=== PATIENT | female | born 1975 | race Caucasian/White ===

== ENCOUNTER 2019-06-30 18:36 | Emergency (ER) | payer OTHER, SELFPAY ==
--- NOTE | ~2019-06-30 | XR_ITS ---
EXAMINATION: XR hand RT min 3V EXAM DATE: 06/30/2019 18:52 INDICATION: Initial encounter following injury, with pain of the right hand. TECHNIQUE: Right hand frontal, lateral and oblique projections obtained and reviewed. There is no pr ior study for comparison. FINDINGS: Right metacarpal bones are unremarkable. There are no acute fractures or dislocations iden tified. There is no subcutaneous gas. The soft tissue is unremarkable. There are no radiopaque fo reign bodies. IMPRESSION: No acute osseous findings. Reviewed, dictated and finalized at location A. IMPRESSION: No acute osseous findings.
[2019-06-30 18:41] VITALS: BP 132/79; PULSE 87; RESP 14; TEMP 37; O2SAT 99
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
== END 2019-06-30 19:17 | disposition home or self-care (01) ==
PROVIDERS: Emergency Provider Nurse Practitioner
DX: S69.91XA Unspecified injury of right wrist, hand and finger(s), initial encounter (principal); X58.XXXA Exposure to other specified factors, initial encounter; F41.9 Anxiety disorder, unspecified; F32.9 Major depressive disorder, single episode, unspecified
CPT/HCPCS: 73130; 99213; G0463

== ENCOUNTER 2020-12-02 21:49 | Emergency (ER) | payer OTHER, SELFPAY ==
[2020-12-02 21:53] VITALS: BP 134/76; PULSE 109; RESP 18; TEMP 37.3; O2SAT 99
[2020-12-02 22:16] VITALS: PULSE 94; RESP 16; TEMP 37.1; O2SAT 98
--- NOTE | 2020-12-02 22:29 | PC.NURSE ---
Pt attempting to void in bathroom
[2020-12-02 22:50] LABS: Add Urine Microscopic? YES; Appearance Urine Cloudy (Clear); Bilirubin Urine 1+ (Negative); Blood Urine Negative (Negative); Calcium Oxalate Crystals Urine Many /hpf; Color Urine Yellow (Yellow); Glucose Urine UA Negative (Negative); Ketones Urine Trace mg/dL (Negative); Leukocyte Esterase Ur 2+ LEU/UL (Negative); Mucus Urine Heavy /lpf; Nitrate Urine Negative (Negative); Protein Urine 2+ mg/dL (Negative); RBC Urine 21-50 /hpf (0-2); Specific Grav Ur 1.034 (1.001-1.035); Squamous Epithelial Cell Urine Many /hpf (Few)
[2020-12-02] MEDS: SODIUM CHLORIDE 0.9% IV 1,000 ML 999 ML IV CONT (22:52)
[2020-12-02] MEDS: KETOROLAC 30 MG/ML VIAL (*BKC) 15 MG IV PUSH (22:54)
[2020-12-02 22:55] LABS: Basophils Percent Auto 0.3 % (0.2-1.2); Eosinophils Absolute Auto 0.3 K/mm3 (0-0.3); Eosinophils Percent Auto 2.7 % (0-4.4); Hematocrit 34.9 % (37.0-47.0); Hemoglobin 10.8 g/dL (12.0-15.0); Immature Granulocyte Absolute 0.02 K/mm3 (0.00-0.031); Immature Granulocyte Percent A 0.2 % (0-0.5); Lymphocytes Absolute Auto 2.55 K/mm3 (0.9-3.2); Lymphocytes Percent Auto 26.3 % (18.3-44.2); Mean Corpuscular HGB Conc 30.9 g/dl (32-36); Mean Corpuscular Hemoglobin 27.2 pg (26-34); Mean Corpuscular Volume 87.9 fl (80-100); Mean Platelet Volume 11.9 fl (7.4-10.4); Monocytes Absolute Auto 0.5 K/mm3 (0.1-0.6); Monocytes Percent Auto 5.5 % (2.6-8.5); Neutrophils Absolute Auto 6.3 K/mm3 (1.3-6.7); Platelet Count Result 249 k/mm3 (150-375); Red Blood Count 3.97 M/mm3 (4.2-5.4); Red Cell Distribution Width 16.3 % (11.5-14.5); White Blood Count 9.7 K/mm3 (4.5-10.0)
--- NOTE | 2020-12-02 22:59 | ED.ABDPAIN ---
HPI - Abdominal Pain General Chief Complaint: Urogenital-Female Stated Complaint: urinary retention, bladder pain Time Seen by Provider: 12/02/20 22:07 History of Present Illness HPI narrative: Patient presents with lower abdominal pain. She was recently seen in another facility diagnosed with a urinary tract infection she was also evaluated for kidney stones with a CT scan and it was negative. She was given Macrobid and discharged home. Patient reports continued pressure sensation and a sensation like she needs to urinate and she is on her last dose of Macrobid. She is concerned that something else might be going on so she came in for evaluation. She also reports fevers at home. Denies any nausea or vomiting. She denies any back pain. Related Data Home Medications Medication Instructions Recorded Confirmed amitriptyline 150 mg PO HS 06/30/19 06/30/19 buspirone 10 mg PO DAILY 06/30/19 06/30/19 dicyclomine 20 mg PO TID 06/30/19 06/30/19 fluoxetine 20 mg PO DAILY 06/30/19 06/30/19 hydroxyzine HCl 25 mg PO TID PRN 06/30/19 06/30/19 Allergies Allergy/AdvReac Type Severity Reaction Status Date / Time No Known Allergies Allergy Verified 12/02/20 22:25 Review of Systems Review of Systems: CONSTITUTIONAL: Denies fever, chills, or sweats. EYES: Denies visual changes, redness, or discharge. ENT: Denies rhinorrhea, congestion, sore throat, or otalgia. CARDIOVASCULAR: Denies chest pain, palpitations, or edema. RESPIRATORY: Denies cough or dyspnea. GASTROINTESTINAL: Denies nausea, vomiting, or diarrhea. GENITOURINARY: She reports urgency SKIN: Denies rash or itching. MUSCULOSKELETAL: Denies back pain, joint pain, or myalgia. NEUROLOGIC: Denies headache, numbness, dizziness, or weakness. PSYCHIATRIC: Denies anxiety or depression. All systems reviewed & are unremarkable except as noted in HPI and below Exam Narrative: GENERAL: Well-appearing, well-nourished, and in no acute distress. HEAD: Normocephalic, atraumatic. EYES: PERRLA and EOMI. ENT: Nares clear, no rhinorrhea or epistaxis. Mucous membranes moist. NECK: Supple. No masses. No JVD ABDOMEN: Mild tenderness palpation in the suprapubic area soft, nontender, normal active bowel sounds. EXTREMITIES: Normal range of motion. No edema. SKIN: Warm, dry, no rash. NEURO: No focal deficits. Alert and oriented x3. PSYCH: Normal mood and affect. Course Reevaluation(s) Reevaluation #1: Patient resting comfortably bladder scan with less than 50, results and plan reviewed with patient. Patient comfortable with the outpatient plan. Primary concern is for continued urinary tract infection with cystitis we will switch up antibiotics. Date: 12/02/20 Time: 23:28 Vital Signs Vital signs: Vital Signs Temperature 37.3 C 12/02/20 21:53 Pulse Rate 109 H 12/02/20 21:53 Respiratory Rate 18 12/02/20 21:53 Blood Pressure 134/76 12/02/20 21:53 Pulse Oximetry 99 12/02/20 21:53 Temperature 37.1 C 12/02/20 22:16 Pulse Rate 96 12/02/20 23:59 Respiratory Rate 18 12/02/20 23:59 Blood Pressure 136/78 12/02/20 23:59 Pulse Oximetry 99 12/02/20 23:59 MDM - Abdominal Pain MDM Narrative Medical decision making narrative: H&P as above, vss, pt looks clinically well, exam with mild tenderness in the suprapubic area, labs with UA concerning for infection, bladder scan within normal limits, additional labs/img considered, symptomatic relief available as needed, on reevaluation pt continues to looks clinically well. Suspect continued UTI with cystitis, dns pyelonephritis, severe sepsis, abscess. Plan to tx/monitor as op w/ pcm f/u findings/plan discussed with pt, pt agree/comfortable with plan, return precautions given Lab Data Result diagrams: 12/02/20 22:50 12/02/20 22:50 Labs: Lab Results 12/02/20 12/02/20 12/02/20 Range/Units 22:37 22:50 22:50 WBC 9.7 (4.5-10.0) K/mm3 RBC 3.97 L (4.2-5.4) M/mm3 Hgb 10.8 L (12.
[2020-12-02 23:04] LABS: Alanine Aminotransferase 9 U/L (4-35); Alkaline Phosphatase 62 U/L (38-126); Anion Gap 6 mmol/L (8-16); Aspartate Amino Transferase 24 U/L (14-36); Bilirubin,Total 0.2 mg/dL (0.2-1.3); Blood Urea Nitrogen 15 mg/dL (7-17); Carbon Dioxide 26 mmol/L (22-30); Chloride 108 mmol/L (98-107); Estimated CRCL calculation 64 ml/min; Estimated Glomerular Filt Rate 60; Glucose 109 mg/dL (65-110); Potassium 3.6 mmol/L (3.4-5.0); Sodium 140 mmol/L (137-145)
--- NOTE | 2020-12-02 23:30 | PC.NURSE ---
Bladder scanned for 42 cc. aware
[2020-12-02 23:59] VITALS: BP 136/78; PULSE 96; RESP 18; O2SAT 99
== END 2020-12-02 23:59 | disposition home or self-care (01) ==
LOC: ANHED 23:36
PROVIDERS: Emergency Provider Emergency Medicine; PCP Internal Medicine
DX: N39.0 Urinary tract infection, site not specified (principal)
CPT/HCPCS: 36415; 80053; 81001; 85025; 87086; 87088; 96361; 96374; 99284; J1885; J7030

== ENCOUNTER 2020-12-07 19:54 | Emergency (ER) | payer OTHER, SELFPAY ==
--- NOTE | 2020-12-07 19:57 | ED.FEMALEGU ---
HPI - Female Genitourinary General Chief complaint: Urogenital-Female Stated complaint: uti Time Seen by Provider: 12/07/20 20:20 Source: patient and RN notes reviewed Mode of arrival: ambulatory Limitations: no limitations History of Present Illness HPI Narrative: 45-year-old female presents with concern for suprapubic pressure, difficulty emptying her bladder. Reports she has had ongoing urinary tract infection symptoms for several weeks, she reports she was treated by her GI for a possible urinary tract infection with Cipro and Flagyl. Reports she was then seen in the emergency room at [facility] and given Macrobid. Reports symptoms did not resolve so she went to [place] [facility] and was given cephalexin. She reports her symptoms have still not resolved. Reports she has had a history of kidney stones, however had a CT scan in the emergency room that ruled out kidney stones. She denies current back pain, flank pain, nausea. Reports she was told in the past that she had a twisted ureter and has seen a urologist. She denies current fever, dysuria,, urgency. MD elicited complaint: UTI Related Data Home Medications Medication Instructions Recorded Confirmed amitriptyline 12/07/20 buspirone mg 12/07/20 cephalexin 12/07/20 fluoxetine mg 12/07/20 fluoxetine mg 12/07/20 phenazopyridine 12/07/20 ziprasidone HCl 12/07/20 Allergies Allergy/AdvReac Type Severity Reaction Status Date / Time No Known Allergies Allergy Verified 12/07/20 20:13 Review of Systems Review of Systems: CONSTITUTIONAL: Denies malaise, chills, sweats, or fever. CARDIOVASCULAR: Denies chest pain, palpitations, or edema. RESPIRATORY: Denies cough or dyspnea. GASTROINTESTINAL: Denies abdominal pain, nausea, vomiting, diarrhea GENITOURINARY: Denies dysuria or hematuria. Reports suprapubic pressure, difficulty emptying her bladder SKIN: Denies vaginal rash or itching. MUSCULOSKELETAL: Denies back pain, joint pain, or myalgia. All systems reviewed & are unremarkable except as noted in HPI and below PMFSH Comments At time of signature, agree with nursing past medical, surgical, social and family history. There is no relevant family history pertinent to the presenting complaint Exam Narrative: GENERAL: Well-appearing, well-nourished, and in no acute distress. HEAD: Normocephalic. EYES: PERRLA, conjunctivae clear. NECK: Supple. No lymphadenopathy CHEST: Clear to auscultation. No respiratory distress. HEART: Regular rate and rhythm. ABDOMEN: Soft, nontender upon palpation, nondistended, normal active bowel sounds, no palpable or pulsatile masses, no guarding. No CVA tenderness SKIN: Warm, dry, no rash. NEURO: Alert and oriented x3. PSYCH: Normal mood and affect Course Course Emergency Course: Discussed with patient by due to frequent recently prescribed antibiotics for similar symptoms that have not resolved, will send urine for culture and will not send antibiotic until/and if needed based on the culture. Patient understands that she needs to follow-up with her urologist for further evaluation of her symptoms. Patient is aware of diagnosis, understands and agrees to treatment plan. Anticipatory guidance given. Patient agrees to follow-up as directed and is aware of reasons to seek care at the emergency department. Portions of this record may have been created with voice recognition software Vital Signs Vital signs: Reviewed. MDM - Female Genitourinary MDM Narrative Medical decision making narrative: Exam findings and UA show no acute concerns or changes; patient is non-toxic appearing and is in no distress. Patient is appropriate for outpatient treatment and follow-up. Critical Care Time Critical Care Time Critical Care Time: No Discharge Plan Discharge Clinical Impression: Suprapubic pressure Patient Disposition: Home, Self-Care Condition: Stable Instructions: General Patient Instructions Additional Instructions: We will send a urin
[2020-12-07 20:06] VITALS: BP 119/77; PULSE 106; RESP 16; TEMP 37.2; O2SAT 99
== END 2020-12-07 20:36 | disposition home or self-care (01) ==
PROVIDERS: Emergency Provider Nurse Practitioner; PCP Internal Medicine
DX: R10.30 Lower abdominal pain, unspecified (principal)
CPT/HCPCS: 81003; 87086; 87088; 99203; G0463

== ENCOUNTER 2021-06-08 08:45 | Emergency (ER) | payer OTHER, SELFPAY ==
[2021-06-08 08:54] VITALS: BP 106/76; PULSE 78; RESP 16; TEMP 36.5; O2SAT 99
--- NOTE | 2021-06-08 08:57 | ED.DENTAL ---
HPI - Dental/Oral General Stated complaint: tooth pain Time Seen by Provider: 06/08/21 08:57 Source: patient Mode of arrival: ambulatory Limitations: no limitations History of Present Illness HPI Narrative: 45 yo F presents with c/o L upper dental pain for 2 to 3 days. states she broke tooth several months ago. Has appt with dentist in 3 wks. Was told to go to to start abx. Denies fever/chills. All systems reviewed and negative except as noted above. Related Data Home Medications Medication Instructions Recorded Confirmed amitriptyline 150 mg PO HS 06/30/19 06/30/19 buspirone 10 mg PO DAILY 06/30/19 06/30/19 dicyclomine 20 mg PO TID 06/30/19 06/30/19 fluoxetine 20 mg PO DAILY 06/30/19 06/30/19 hydroxyzine HCl 25 mg PO TID PRN 06/30/19 06/30/19 amitriptyline 12/07/20 buspirone mg 12/07/20 cephalexin 12/07/20 fluoxetine mg 12/07/20 fluoxetine mg 12/07/20 phenazopyridine 12/07/20 ziprasidone HCl 12/07/20 Allergies Allergy/AdvReac Type Severity Reaction Status Date / Time No Known Allergies Allergy Unverified 12/07/20 20:13 Review of Systems Review of Systems: CONSTITUTIONAL: Denies fever, chills, or sweats. EYES: Denies visual changes, redness, or discharge. ENT: Denies rhinorrhea, congestion, sore throat, or otalgia. Reports dental pain. CARDIOVASCULAR: Denies chest pain, palpitations, or edema. RESPIRATORY: Denies cough or dyspnea. GASTROINTESTINAL: Denies abdominal pain, nausea, vomiting, or diarrhea. GENITOURINARY: Denies dysuria or hematuria. SKIN: Denies rash or itching. MUSCULOSKELETAL: Denies back pain, joint pain, or myalgia. NEUROLOGIC: Denies headache, numbness, or weakness. PSYCHIATRIC: Denies anxiety or depression. All other systems reviewed are negative, except as documented in HPI. PMFSH Comments At time of signature, agree with nursing past medical, surgical, social and family history. There is no relevant family history pertinent to the presenting complaint. Exam Narrative: GENERAL: This is a well-nourished, well-developed patient, in no apparent distress. HEAD: normocephalic, atraumatic. EYES: PERRL. Sclera clear/white. Vision is grossly intact. EARS: External ears normal, auditory canals clear and without drainage, TMs normal without perforation. Hearing grossly intact. NOSE: External nose normal with no obvious nasal discharge, nares without redness, no rhinorrhea. THROAT: Mucous membranes moist, posterior pharynx clear. MOUTH: dental decay noted. Tooth #12 is broken with tenderness. Swelling noted to pt's L cheek. No fluctuance noted concerning for abscess. NECK: Neck supple, non-tender without lymphadenopathy, masses or thyromegaly. CARDIOVASCULAR: Regular rate and rhythm without murmurs, gallops, or rubs. RESPIRATORY: Clear to auscultation. Breath sounds equal bilaterally. No wheezes, rales, or rhonchi. GASTROINTESTINAL: Abdomen soft, non-tender, nondistended. Bowel sounds are active. No hepato-splenomegaly, or palpable masses. No guarding. SKIN: warm, Dry, intact with no suspicious lesions or rash, good texture and turgor. NEURO: awake, alert, and oriented to person, place and time. There were no obvious focal neurologic abnormalities. EXTREMITIES: No joint tenderness, effusion, or edema noted. No calf tenderness. Negative Homans sign bilaterally. BACK: Nontender without deformity. No CVA tenderness. Course Course Level of Care: Express Care Visit Vital Signs Vital signs: Vital Signs Temperature 36.5 C 06/08/21 08:54 Pulse Rate 78 06/08/21 08:54 Respiratory Rate 16 06/08/21 08:54 Blood Pressure 106/76 06/08/21 08:54 Pulse Oximetry 99 06/08/21 08:54 Temperature 36.5 C 06/08/21 08:54 Pulse Rate 78 06/08/21 08:54 Respiratory Rate 16 06/08/21 08:54 Blood Pressure 106/76 06/08/21 08:54 Pulse Oximetry 99 06/08/21 08:54 Reviewed MDM - Dental/Oral MDM Narrative Medical decision making narrative: Patient is aware of diagnosis, understan
== END 2021-06-08 09:12 | disposition home or self-care (01) ==
PROVIDERS: Emergency Provider Nurse Practitioner Family; PCP Internal Medicine
DX: K08.89 Other specified disorders of teeth and supporting structures (principal); Z85.048 Personal history of other malignant neoplasm of rectum, rectosigmoid junction, and anus; Z85.41 Personal history of malignant neoplasm of cervix uteri
CPT/HCPCS: 99213; G0463

== ENCOUNTER 2022-01-13 11:13 | Emergency (ER) | payer OTHER, SELFPAY ==
--- NOTE | ~2022-01-13 | XR_ITS ---
EXAMINATION: XR chest 2V DATE: 01/13/2022 12:13 INDICATION: Chest pain. Cough. TECHNIQUE: Frontal and lateral views of the chest were obtained. COMPARISON: None. FINDINGS: There is no pneumonia, pleural effusion, or pneumothorax. The heart size is normal. There i s a compression fracture in mid thoracic spine, likely chronic. Surgical clips in the right upper edwina drant are likely from cholecystectomy. IMPRESSION: 1. No acute cardiopulmonary disease. Reviewed, dictated and finalized at location A.
[2022-01-13 11:17] VITALS: BP 129/62; PULSE 73; RESP 24; TEMP 36.4; O2SAT 100
--- NOTE | 2022-01-13 11:20 | ECG_ITS ---
Measurements Intervals Stacy Rate: 68 P: 59 FL: 135 QRS: 29 QRSD: 81 T: 35 QT: 401 QTc: 429 Interpretive Statements SINUS RHYTHM NORMAL ECG NO PREVIOUS ECG AVAILABLE FOR COMPARISON Electronically Signed On 01-13-2022 15:42:42 CDT by Chris Jo M.D.
--- NOTE | 2022-01-13 11:49 | ED.CHESTPAIN ---
HPI - Chest Pain General Chief Complaint: Chest Pain Stated Complaint: Chest Pain Time Seen by Provider: 01/13/22 11:58 Source: patient Mode of arrival: ambulatory Limitations: no limitations History of Present Illness HPI narrative: 46-year-old female presented for complaint of mid chest pressure right and right shoulder pain this morning. Rates pain/pressure 7 out of 10. Also endorses for 6 months she has had cough and congestion for which she has been seen by her provider and is on her third round of antibiotics. States she was diagnosed with bronchitis and sinus infection, she is scheduled to have a CT scan of her sinuses. She is currently taking a Z-Nic and promethazine for symptoms. She is using albuterol inhaler as needed and Symbicort as directed. She was in the ER this morning but left due to one hour wait. She denies increased shortness of breath, wheezing, palpitations, vomiting or fevers or chills. Smokes marijuana for IBS. Related Data Home Medications Medication Instructions Recorded Confirmed albuterol sulfate 90 mcg/actuation 2 puff inhalation TID PRN 01/13/22 01/13/22 aerosol inhaler Shortness Of Breath Or Wheezing azithromycin 250 mg tablet 250 mg PO DAILY 01/13/22 01/13/22 budesonide-formoterol HFA 160 2 puff inhalation BID 01/13/22 01/13/22 mcg-4.5 mcg/actuation aerosol inhaler (Symbicort) fluticasone propionate 50 2 spray intranasal DAILY 01/13/22 01/13/22 mcg/actuation nasal spray,suspension promethazine-DM 6.25 mg-15 mg/5 mL 5 ml PO TID 01/13/22 01/13/22 oral syrup Allergies Allergy/AdvReac Type Severity Reaction Status Date / Time No Known Allergies Allergy Verified 01/13/22 11:51 Review of Systems Review of Systems: CONSTITUTIONAL: Denies body aches, fever, chills, or sweats. EYES: Denies visual changes, redness, or discharge. ENT: Denies rhinorrhea, congestion, sore throat, or otalgia. CARDIOVASCULAR: Denies palpitations, or edema. RESPIRATORY: Reports cough, denies sob, wheezing. GASTROINTESTINAL: Denies abdominal pain, nausea, vomiting, or diarrhea. GENITOURINARY: Denies dysuria or hematuria. SKIN: Denies rash or wounds. MUSCULOSKELETAL: Reports right shoulder NEUROLOGIC: Denies headache, numbness, tingling, or weakness. All systems reviewed & are unremarkable except as noted in HPI and below PMFSH Comments At time of signature, I have reviewed and agree with nursing past medical, surgical, social and family history unless otherwise noted. Please see nursing chart for further information. There is no relevant family history pertinent to the presenting complaint Exam Narrative: GENERAL: Well-appearing EYES: EOMI. No redness or drainage. Conjunctivae normal. ENT: Mucous membranes pink and moist. No rhinorrhea. TMs normal bilaterally. Throat normal. Uvula midline. NECK: Normal AROM. Supple. CHEST: No respiratory distress. LCTAB HEART: Regular rate and rhythm. No murmur appreciated. ABDOMEN: Soft, nontender, nondistended, normal active bowel sounds. SKIN: Warm, dry, no rash. Capillary refill normal. Normal skin turgor. MUSC: Right deltoid tender with palpation, no redness bruising or lesions, full ROM NEURO: Alert and oriented x3. Course Course Emergency Course: Patient is aware of diagnosis, understands and agrees to treatment plan. Anticipatory guidance given. Patient agrees to follow-up as directed and is aware of reasons to seek care at the emergency department. Portions of this record may have been created with voice recognition software Level of Care: Express Care Visit Vital Signs Vital signs: Vital Signs Temperature 97.5 F L 01/13/22 11:17 Pulse Rate 73 01/13/22 11:17 Respiratory Rate 24 H 01/13/22 11:17 Blood Pressure 129/62 01/13/22 11:17 Pulse Oximetry 100 01/13/22 11:17 Oxygen Delivery Room Air 01/13/22 11:17 Temperature 97.5 F L 01/13/22 11:17 Pulse Rate 73 01/13/22 11:17 Respiratory Rate 24 H 01/13
[2022-01-13] MEDS: IBUPROFEN 400 MG TABLET 800 MG PO (12:03)
== END 2022-01-13 12:35 | disposition home or self-care (01) ==
PROVIDERS: Emergency Provider Nurse Practitioner Family; PCP Internal Medicine
DX: J40 Bronchitis, not specified as acute or chronic (principal); M25.511 Pain in right shoulder
CPT/HCPCS: 71046; 93005; 99213; A9270; G0463

== ENCOUNTER 2022-03-07 15:05 | Emergency (ER) | payer OTHER, SELFPAY ==
[2022-03-07 15:15] VITALS: BP 139/76; PULSE 91; RESP 20; TEMP 36.9; O2SAT 99
--- NOTE | 2022-03-07 15:54 | ED.URI ---
HPI - URI/Sore Throat General Chief Complaint: Upper Respiratory Infection Stated Complaint: Sinus Pain/Cough Time Seen by Provider: 03/07/22 15:56 Source: patient and RN notes reviewed Mode of arrival: ambulatory Limitations: no limitations History of Present Illness HPI Narrative: 46-year-old female presenting for complaint of left eye redness and swelling. She states she woke with her eye crusted shut this morning and has noted pus to the eye. Denies vision changes, photophobia, headache, dizziness, fevers or chills. She denies significant pain to the eye or foreign body sensation. She has appointment with her ENT tomorrow for recurrent sinusitis. She is currently taking steroid, antibiotic, and Zyrtec for symptoms. MD elicited complaint: cough Related Data Home Medications Medication Instructions Recorded Confirmed albuterol sulfate 90 mcg/actuation 2 puff inhalation TID PRN 01/13/22 01/13/22 aerosol inhaler Shortness Of Breath Or Wheezing azithromycin 250 mg tablet 250 mg PO DAILY 01/13/22 01/13/22 budesonide-formoterol HFA 160 2 puff inhalation BID 01/13/22 01/13/22 mcg-4.5 mcg/actuation aerosol inhaler (Symbicort) fluticasone propionate 50 2 spray intranasal DAILY 01/13/22 01/13/22 mcg/actuation nasal spray,suspension promethazine-DM 6.25 mg-15 mg/5 mL 5 ml PO TID 01/13/22 01/13/22 oral syrup mirtazapine 7.5 mg tablet mg 03/07/22 Allergies Allergy/AdvReac Type Severity Reaction Status Date / Time No Known Allergies Allergy Verified 01/13/22 11:51 Review of Systems Review of Systems: ROS per HPI Exam Narrative: GENERAL: well-appearing EYES: PERRLA, EOMI. conjunctivae clear, left eye lids with mild erythema and redness, small amount purulent drainage. ENT: Mucous membranes moist. sinus congestion TMs pearly durán with dull light reflex bilaterally; no tragal tenderness. CHEST: Clear to auscultation, breath sounds equal. No wheezing, rhonchi, rales, or stridor. No respiratory distress, speaks in full sentences. HEART: Regular rate and rhythm. No murmur heard. SKIN: Warm, dry, no rash. NEURO: Alert and oriented x3. PSYCH: Normal mood and affect Course Course Emergency Course: Patient is aware of diagnosis, understands and agrees to treatment plan. Anticipatory guidance given. Patient agrees to follow-up as directed and is aware of reasons to seek care at the emergency department. Portions of this record may have been created with voice recognition software Level of Care: Express Care Visit Vital Signs Vital signs: Vital Signs Temperature 98.4 F 03/07/22 15:15 Pulse Rate 91 03/07/22 15:15 Respiratory Rate 20 03/07/22 15:15 Blood Pressure 139/76 03/07/22 15:15 Pulse Oximetry 99 03/07/22 15:15 Oxygen Delivery Room Air 03/07/22 15:15 Temperature 98.4 F 03/07/22 15:15 Pulse Rate 91 03/07/22 15:15 Respiratory Rate 20 03/07/22 15:15 Blood Pressure 139/76 03/07/22 15:15 Pulse Oximetry 99 03/07/22 15:15 Oxygen Delivery Room Air 03/07/22 15:15 reviewed MDM - URI/Sore Throat Differential Diagnosis Differential diagnosis: Likely upper respiratory infection, sinusitis and viral infection Discharge Plan Discharge Clinical Impression: Conjunctivitis Patient Disposition: Home, Self-Care Condition: Stable Instructions: Antibiotic Form, Conjunctivitis (ED) Additional Instructions: Avoid touching or rubbing your eye. Use over the counter lubricating eye drops as needed for irritation Use a warm or cool washcloth on your eye for comfort Use eyedrops as directed - you are contagious for 24 hours after starting the antibiotic Practice good handwashing and hygiene to prevent spread of infection You may take Tylenol or ibuprofen for pain Follow-up with PCP or architectural superintendent if condition is not improving in 2-3days. Go to the emergency room if you have severe pain or pressure behind your eye, difficulty seeing, or other severe s
== END 2022-03-07 16:07 | disposition home or self-care (01) ==
PROVIDERS: Emergency Provider Nurse Practitioner Family; PCP Internal Medicine
DX: H10.9 Unspecified conjunctivitis (principal)
CPT/HCPCS: 99213; G0463

== ENCOUNTER 2022-12-22 16:13 | Emergency (ER) | payer OTHER, SELFPAY ==
[2022-12-22 16:18] VITALS: BP 124/67; PULSE 71; RESP 16; TEMP 37.1; O2SAT 99
--- NOTE | 2022-12-22 16:23 | ED.GENADULT ---
HPI - General Adult General Chief complaint: Nausea/Vomiting/Diarrhea Stated complaint: Vomitting and Diarrhea Time Seen by Provider: 12/22/22 16:23 Source: patient, RN notes reviewed and old records reviewed Mode of arrival: ambulatory Limitations: no limitations History of Present Illness HPI narrative: 47-year-old female presents to the [facility] with complaints abdominal pain worse epigastric, right upper quadrant. Also complains of at least 3 days of nausea vomiting and diarrhea. Unable to keep water down. States that she just left the ER because they did not want await. Has been taking Zofran and bentyl. Onset (ago): day(s) (3-4) Related Data Home Medications Medication Instructions Recorded Confirmed albuterol sulfate 90 mcg/actuation 2 puff inhalation TID PRN 01/13/22 12/22/22 aerosol inhaler Shortness Of Breath Or Wheezing budesonide-formoterol HFA 160 2 puff inhalation BID 01/13/22 12/22/22 mcg-4.5 mcg/actuation aerosol inhaler (Symbicort) baclofen 20 mg tablet 20 mg DIRECTED 12/22/22 12/22/22 lurasidone 60 mg tablet 60 mg DIRECTED 12/22/22 12/22/22 meloxicam 15 mg tablet 15 mg DIRECTED 12/22/22 12/22/22 prazosin 1 mg capsule 1 mg DIRECTED 12/22/22 12/22/22 Allergies Allergy/AdvReac Type Severity Reaction Status Date / Time No Known Allergies Allergy Verified 01/13/22 11:51 Review of Systems Review of Systems: All systems reviewed & are unremarkable except as noted in HPI and below Constitutional: Constitutional: Reports no additional constitutional complaints Eyes: Eyes: Reports no additional eye complaints ENT: Reports system reviewed and no additional complaints, except as documented Cardiovascular: Cardiovascular: Reports no additional cardiovascular complaints, Denies chest pain and Denies dyspnea Respiratory: Respiratory: Reports no additional respiratory complaints, Denies chest congestion, Denies cough and Denies dyspnea Gastrointestinal: Gastrointestinal: Reports as per HPI, Reports abdominal pain, Reports diarrhea, Reports nausea and Reports vomiting Musculoskeletal: Musculoskeletal: Reports no additional musculoskeletal complaints Integumentary/Breasts: Skin/Breast: Reports system reviewed and no additional complaints, except as docu Neurologic: Reports system reviewed and no additional complaints, except as documented Psychiatric: Psychiatric: Reports no additional psychiatric complaints Allergic/Immunologic: Allergic/Immunologic: Reports no additional allergic/immunologic complaints PMFSH Comments At the time of my signature, I reviewed and agree with the nursing past medical, surgical, social, and family history. There is no relevant family history pertinent to the patient complaint. Exam Const: General: cooperative, no acute distress, well developed, alert, ill appearing acutely (mild), uncomfortable and well nourished Nutritional Appearance: well nourished Orientation/consciousness: patient oriented x3 Limitations: no limitations HENMT: Head: normal to inspection Ears: hearing grossly normal bilaterally and external ears normal Face/Nose/Sinus: Normal external nose present, Normal nares present, Normal nasal mucous membranes and turbinates present, normal facial exam and face symmetric Face and sinus: normal facial exam and face symmetric Mouth: Yes lip normal and Yes dry mucous membranes Throat: posterior oropharynx normal and uvula midline Eyes: General: appearance normal, both eyes and all related structures Alignment and Position: alignment normal Periorbital: periorbital findings normal Pupils: Equal, round and reactive pupils present EOM: EOMs intact bilaterally Neck: Neck: normal visual inspection, full ROM, no lymphadenopathy and no meningeal signs Chest: Chest palpation & inspection: normal inspection of the chest Resp: Effort & Inspection: normal respiratory effort and able to speak in complete sentences Auscultation: clear to auscultat
[2022-12-22 16:25] VITALS: BP 124/67; PULSE 71; RESP 16; TEMP 37.1; O2SAT 99
== END 2022-12-22 16:35 | disposition short-term general hospital (02) ==
LOC: EXPBETH 16:16
PROVIDERS: Emergency Provider Nurse Practitioner; PCP Internal Medicine
DX: R11.2 Nausea with vomiting, unspecified (principal); R19.7 Diarrhea, unspecified; Z85.048 Personal history of other malignant neoplasm of rectum, rectosigmoid junction, and anus; Z85.41 Personal history of malignant neoplasm of cervix uteri
CPT/HCPCS: 99212; G0463

== ENCOUNTER 2024-06-17 09:21 | Emergency (ER) | payer BC, OTHER, SELFPAY ==
[2024-06-17 09:33] VITALS: BP 165/77; PULSE 78; RESP 20; TEMP 36.7; O2SAT 100
--- NOTE | 2024-06-17 09:46 | ED.GENADULT ---
HPI - General Adult General Chief complaint: Extremity Injury, Upper Stated complaint: left pointer finger injury Time Seen by Provider: 06/17/24 09:46 Source: patient Mode of arrival: ambulatory Limitations: no limitations History of Present Illness HPI narrative: 49-year-old female presented for complaint of a laceration to the left index finger sustained just prior to arrival. 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 Applied pressure to the site immediately. Denies decreased sensation or decreased range of motion to the finger. Unsure of last tetanus. Related Data Home Medications ?Medication ?Instructions ?Recorded ?Confirmed ?Last Taken ?Type quetiapine 150 mg tablet mg 06/17/24 Unknown History Allergies Allergy/AdvReac Type Severity Reaction Status Date / Time No Known Allergies Allergy Verified 06/17/24 09:40 Review of Systems Review of Systems: CONSTITUTIONAL: Denies body aches, fever, chills, or sweats. CARDIOVASCULAR: Denies chest pain, palpitations, or edema. RESPIRATORY: Denies cough or dyspnea. GASTROINTESTINAL: Denies abdominal pain, nausea, vomiting, or diarrhea. SKIN: reports left index finger laceration MUSCULOSKELETAL: Denies back pain, joint pain, or myalgia. NEUROLOGIC: Denies headache, numbness, tingling, or weakness. PMFSH Comments At time of signature, I have reviewed and agree with nursing past medical, surgical, social and family history unless otherwise noted. Please see nursing chart for further information. There is no relevant family history pertinent to the presenting complaint Exam Narrative: GENERAL: Well-appearing EYES: conjunctivae clear, and EOMI. ENT: Mucous membranes moist. Oropharynx without edema, erythema or lesions. NECK: Supple. No lymphadenopathy CHEST: Clear to auscultation. HEART: Regular rate and rhythm. SKIN: Warm, dry. Left hand 2nd digit with 1.5cm U-shaped flap laceration to the radial aspect of the PIP. CMS intact. NEURO: Alert and oriented x3. Course Course Emergency Course: Patient is aware of diagnosis, understands and agrees to treatment plan. Anticipatory guidance given. Patient agrees to follow-up as directed and is aware of reasons to seek care at the emergency department. Portions of this record may have been created with voice recognition software Level of Care: Express Care Visit Vital Signs Vital signs: Vital Signs Temperature 98.0 F 06/17/24 09:33 Pulse Rate 78 06/17/24 09:33 Respiratory Rate 20 06/17/24 09:33 Blood Pressure 165/77 H 06/17/24 09:33 Pulse Oximetry 100 06/17/24 09:33 Oxygen Delivery Room Air 06/17/24 09:33 Temperature 98.0 F 06/17/24 09:33 Pulse Rate 78 06/17/24 09:33 Respiratory Rate 20 06/17/24 09:33 Blood Pressure 165/77 H 06/17/24 09:33 Pulse Oximetry 100 06/17/24 09:33 Oxygen Delivery Room Air 06/17/24 09:33 Reviewed Procedures Laceration Left 2nd digit: Date: 06/17/24 Size (cm): 1.5 Description: flap and clean Depth: simple, single layer Pre-repair: wound explored and irrigated ====== Skin Level ====== Skin layer closed with: dermabond and steri strips ====== Subcutaneous Layer ====== ====== Muscle Layer ====== ====== Tendon Layer ====== Dressing: The procedure and its alternatives were reviewed with patient. Risks were reviewed with patient including infection and damage to nearby structures. Patient provided verbal informed consent. The patient was positioned appropriately. Wound was explored for abnormalities including infection and foreign bodies. Steri-Strips and Dermabond placed with wound edges approximated. Patient tolerated well, no complications. Dressing and splint applied per RN. Medical Decision Making MDM Narrative Medical decision making narrative: Discussed physical exam findings, advised suture placement however pt has extreme fear of needles and wounds, and says she does not think she can handle sutures. Advised to keep splint in place with dermabond and steri strips. metal finger splint in place. Tetanus updated today. Rx abx. Advised supportive measures and signs/symptoms to go to the ER. Pt is appropriate for outpt treatment and f/u. Differential Diagnosis Differential Diagnosis: laceration, abrasion, avulsion Vital Signs Vital Signs: Vital Signs Temperature 98.0 F 06/17/24 09:33 Pulse Rate 78 06/17/24 09:33 Respiratory Rate 20 06/17/24 09:33 Blood Pressure 165/77 H 06/17/24 09:33 Pulse Oximetry 100 06/17/24 09:33 Oxygen Delivery Room Air 06/17/24 09:33 Temperature 98.0 F 06/17/24 09:33 Pulse Rate 78 06/17/24 09:33 Respiratory Rate 20 06/17/24 09:33 Blood Pressure 165/77 H 06/17/24 09:33 Pulse Oximetry 100 06/17/24 09:33 Oxygen Delivery Room Air 06/17/24 09:33 Discharge Plan Discharge Clinical Impression: Finger laceration Qualifiers: Encounter type: initial encounter Finger: index finger Damage to nail status: without damage Foreign body presence: without foreign body Laterality: left Qualified Code(s): S61.211A - Laceration without foreign body of left index finger without damage to nail, initial encounter Patient Disposition: Home, Self-Care Condition: Stable Instructions: Antibiotic Form, Finger Laceration (ED) Additional Instructions: The glue film will fall off in 5 to 10 days Steri-Strips will roll off on their own within 14 days Do not soak your wound. Avoid frequent or prolonged contact with water, including heavy perspiration. This may loosen the skin glue before the wound is healed. Keep the area clean and dry - cleanse with warm water and mild soap and allow to fully dry. wear the splint for 7-10 days. You can remove it only to clean the finger; avoid bending the finger. Take the antibiotic as directed Tylenol as needed for pain Watch for worsening symptoms including pain, redness, swelling, streaking, pus/drainage, fever. Go to the ER with any of these symptoms or concerns. Follow up with primary care provider in 1 week as needed. Patient Language: Danish Prescriptions: New cephalexin 500 mg capsule 500 mg PO Q12H 5 Days Qty: 10 0RF No Action quetiapine 150 mg tablet Follow-up/Referrals: Carrillo,MD Phoebe [Primary Care Provider] - Stand Alone Forms: Work/School Release IP
[2024-06-17] MEDS: TETANUS,DIPHTHERIA,AC PERTUSSIS ADULT (0.5 ML) BOOSTRIX IM (09:57)
--- OUTSIDE RECORDS SUMMARY | 2024-06-17 10:07 | XMS_ITS | Clinical Summary ---
Author Organization [facility] Address [address] [place] [address] Care Team Providers Care Mortgage Loan Closer Name Role Phone Kiara Chaudhry Primary Care Provider [phone] Source Comments [facility],non-owned Affiliates and Associated Physician Practices is amultiple site organization consisting of ambulatory clinics and hospital sitesin [place], [place], [place]. This disclosure is being madepursuant to the Care Everywhere program and may not contain all information available regarding this patient. Last updated 17.[facility] [employer] Social History Tobacco Use Types Packs/Day Years Used Date Smoking Tobacco: Never Assessed Sex and Gender Information Value Date Recorded Sex Assigned at Not on file Gender Identity Not on file Sexual Orientation Not on file Plan of Treatment Health Maintenance Due Date Last Done Comments COLOGUARD (AGES 45-75) - COL ON CA SCREENING 1976 COLON MONITORING 1976 COLONOSCOPY - COLON CA SCREENING 1976 CT COLONOGRAPHY - COLON CA SCREENING 1976 Colorectal Cancer Screening 1976 FIT - COLON CA SCREENING 1976 FLEX SIG - COLON CA SCREENING 1976 LIPID TESTING 1976 MAMMOGRAM 1976 HIV SCREENING 06/11/1991 HEPATITIS C SCREENING 06/06/1994 DTAP/TDAP/TD VACCINES (1 - Tdap) 06/11/1995 HEPATITIS B VACCINE (1 of 3 - 19+ 3-dose series) 06/11/1995 PAP SMEAR 03/04/2001 03/04/1998 COVID-19 VACCINE ( - 2023-2 5 season) 2023 INFLUENZA VACCINE (#1) 2023 DEPRESSION SCREENING 04/02/2024 ZOSTER VACCINE (1 of 2) 2026 HIB VACCINE Aged Out No longer eligi ble based on patient's age to complete this topic HPV VACCINE Aged Out No longer eligi ble based on patient's age to complete this topic MENINGOCOCCAL (Group B) VACC INE SHARED DECISION-MAKING Aged Out No longer eligibl e based on patient's age to complete this topic MENINGOCOCCAL GROUPS A/C/Y/W VACCINE Aged Out No longer eligible b ased on patient's age to complete this topic PNEUMOCOCCAL VACCINE Aged Out No long er eligible based on patient's age to complete this topic Procedures Procedure Name Priority Date/Time Associated Diagnosis Comments CYTOLOGY SMEAR PAP THIN PREP SILVINA 03/04/1998 10:54 AM RAD TECH from Last 3 Months or Most Recently Relevant to Health Maintenance Results * CYTOLOGY SMEAR PAP THIN PREP (03/04/1998 10:54 AM RAD TECH) Result CASE NUMBER [id number] Comment: ORDERING PHYSICIAN MICHAEL LORA SPECIMEN TYPE PAP Smear Date 03/04/1998 Procedure Cervical/Endocervical, 1 Vial for Thin Prep Received Specimen Adequacy Satisfactory for Evaluation Categorization Within Normal Limits Snomed. 03/15/1998 1351 <1> Night Auditor Tereza Crowe(ASCP) PAP Footnote The PAP smear is only a screening procedure to aid in the detection of cervical cancer and its precursors. It is not a diagnostic procedure and should not be used as the sole means to detect cervical cancer. Both false negative and false positive results have been experienced. MISCELLANEOUS SAMPLES / Unknown 03/04/1998 10:54 AM RAD TECH 03/12/1998 10:54 AM RAD TECH Historical Provider LAB - PATHOLOGY/C YTOLOGY ORDERABLES from Last 3 Months or Most Recently Relevant to Health Maintenance Care Teams Mortgage Loan Closer Relationship Specialty Start Date End Date Kiara Chaudhry PA [address] [place] [address] PCP - General Physician Wood [employer]ater 08/29/18
--- OUTSIDE RECORDS SUMMARY | 2024-06-17 10:07 | XMS_ITS | Clinical Summary ---
Author Organization [facility] Address [address] [place] [id number] Care Team Providers Care Central Station Operator Name Role Phone Saw Odonnell MD Primary Care Provider [phone] Social History Tobacco Use Types Packs/Day Years Used Date Smoking Tobacco: Never Assessed Comments Unknown Sex and Gender Information Value Date Recorded Sex Assigned at Not on file Legal Sex Female 7:24 PM CDT Gender Identity Not on file Sexual Orientation Not on file Plan of Treatment Health Maintenance Due Date Last Done Comments Cervical Cancer Screening Pa p Smear (Age 30 to 64) Every 3 Years 1976 Colorectal Cancer Screening Colonoscopy (10 Years) 1976 Annual Physical 06/11/1979 Hepatitis C 1994 DTaP, Tdap and Td Vaccines ( 1 - Tdap) 06/11/1995 Hepatitis B Vaccines (1 of 3 - 19+ 3-dose series) 06/11/1995 Cervical Cancer Screening Pa p with HPV Testing (Age 30 to 64) Every 5 Years 2006 Cervical Cancer Screening with HPV 2006 Mammogram Screening 2016 COVID-19 Vaccine (2023-2 5 season) 2023 Influenza Adult (#1) 2024 Meningococcal B Vaccine Aged Out No l onger eligible based on patient's age to complete this topic Meningococcal Vaccine Aged Out No diamond domitila eligible based on patient's age to complete this topic Pneumococcal Vaccine: Pediat rics (0 to 5 Years) and At-Risk Patients (6 to 64 Years) Aged Out No longer eligible b ased on patient's age to complete this topic RSV Immunizations Under 20 Months Aged Out No longer eligible based on patient's age to complete this topic Care Teams Central Station Operator Relationship Specialty Start Date End Date Saw Odonnell MD [facility] - General 01/14/14
== END 2024-06-17 10:17 | disposition home or self-care (01) ==
PROVIDERS: Emergency Provider Nurse Practitioner Family; PCP Internal Medicine
DX: S61.211A Laceration without foreign body of left index finger without damage to nail, initial encounter (principal); W45.8XXA Other foreign body or object entering through skin, initial encounter; Y99.0 Civilian activity done for income or pay; Z23 Encounter for immunization; Z85.41 Personal history of malignant neoplasm of cervix uteri; Z85.048 Personal history of other malignant neoplasm of rectum, rectosigmoid junction, and anus
CPT/HCPCS: 12001; 90471; 90715; 99213; G0463